=== PATIENT | female | born 1975 | race Caucasian/White ===

== ENCOUNTER 2016-11-09 10:44 | Emergency (ER) | payer OTHER ==
[2016-11-09 11:10] VITALS: BP 146/89; PULSE 70; TEMP 98.6; BMI 26.6
--- NOTE | 2016-11-09 11:53 | PDOC ---
History of Present Illness - General Chief Complaint: Back Pain Stated Complaint: BACK PAIN Time Seen by Provider: 11/09/16 11:49 History Source: Patient Exam Limitations: No Limitations - History of Present Illness Initial Comments: 11/09/16 11:50 41 yr female with history of "pinched nerve to neck" states she was blowdrying and curling her hair this AM at 7 when she felt a pulling to her left scapular area, with burning sensation. Pt has had this before. Pt takes no medicines daily no allergies. LMP 10/04/16. Past History - Past Medical History Allergies/Adverse Reactions: Allergies Allergy/AdvReac Type Severity Reaction Status Date / Time No Known Allergies Allergy Verified 11/09/16 11:07 Home Medications: Ambulatory Orders Diazepam [Valium] 5 mg PO Q8H PRN #12 tablet MDD 3 tabs 11/09/16 Ketorolac Tromethamine [Toradol] 10 mg PO Q6H PRN #20 tablet 11/09/16 Cardiac Disorders: Yes (heart murmur) - Immunization History Immunization Up to Date: Yes - Suicide/Smoking/Psychosocial Hx Smoking History: Never smoked Have you smoked in the past 12 months: No Hx Alcohol Use: No Drug/Substance Use Hx: No Trauma Specific PMHX - Complaint Specific PMHX Arthritis: No Back Injury: No Neck Injury: Yes Hx Sacro Iliac Joint Dysfunction: No Review of Systems - Review of Systems Able to Perform ROS?: Yes Is the patient limited Cypriot proficient: No Constitutional: No: Symptoms Reported HEENTM: No: Symptoms Reported Respiratory: No: Symptoms reported Cardiac (ROS): No: Symptoms Reported ABD/GI: No: Symptoms Reported : No: Symptoms Reported Musculoskeletal: Yes: See HPI *Physical Exam - Vital Signs Last Vital Signs Temp Pulse Resp BP Pulse Ox 98.6 F 70 20 146/89 100 11/09/16 11:08 11/09/16 11:08 11/09/16 11:08 11/09/16 11:08 11/09/16 11:08 - Physical Exam General Appearance: Yes: Nourished, Appropriately Dressed HEENT: positive: EOMI, BENJAMIN, Normal ENT Inspection, TMs Normal, Pharynx Normal Neck: positive: Supple. negative: Tender lateral, Tender midline Respiratory/Chest: positive: Lungs Clear, Normal Breath Sounds. negative: Chest Tender Cardiovascular: positive: Regular Rhythm, Regular Rate Gastrointestinal/Abdominal: positive: Normal Bowel Sounds, Soft. negative: Tender Rectal Exam: positive: deferred Musculoskeletal: positive: Normal Inspection, Decreased Range of Motion, Muscle Spasm (left trapezius muscle with spasm, no vetebral tenderness ). negative: CVA Tenderness (L) Extremity: positive: Normal Capillary Refill, Normal Inspection, Normal Range of Motion. negative: Tender Integumentary: positive: Normal Color, Dry, Warm Neurologic: positive: Fully Oriented, Alert, Normal Mood/Affect, Normal Response , Motor Strength 5/5 Medical Decision Making - Medical Decision Making 11/09/16 11:52 cc: muscle spasm left side trapezius ttp no vetebral tenderness pt unsure of will check if negative valium and toradol *DC/Admit/Observation/Transfer Diagnosis at time of Disposition: Muscle spasm, Cervical nerve root impingement - Discharge Dispostion Disposition: HOME Condition at time of disposition: Good - Prescriptions Prescriptions: Ketorolac Tromethamine [Toradol] 10 mg PO Q6H PRN #20 tablet PRN Reason: Pain Diazepam [Valium] 5 mg PO Q8H PRN #12 tablet MDD 3 tabs PRN Reason: Muscle Spasms - Referrals Referrals: Jacobo Stone MD [Staff Physician] - - Patient Instructions Additional Instructions: apply warm compresses to the area of pain every 3hrs for 20 minutes take the medications as directed for pain and muscle spam the medication should be taken for 3-4 days to provide optimum relief of pain , it will not go away right away Please follow with the orthopedist Dr. Valencia or for follow up call today to make appointment for this week or see your primary care doctor
[2016-11-09] MEDS ORDERED: diazePAM 5 MG TABLET PO ONE (12:14)
[2016-11-09] MEDS ORDERED: KETOROLAC TROMETHAMINE 60 MG/2 ML VIAL IM ONE (12:14)
== END 2016-11-09 12:48 | disposition home or self-care (01) ==
LOC: JERFT 10:44
PROC: 3E0233Z Introduction of Anti-inflammatory into Muscle, Percutaneous Approach (ICD-10-PCS; principal; 2016-11-09)
DX: M62.838 Other muscle spasm (principal); G58.8 Other specified mononeuropathies; X50.1XXA Overexertion from prolonged static or awkward postures, initial encounter; Y93.E8 Activity, other personal hygiene; Y92.098 Other place in other non-institutional residence as the place of occurrence of the external cause
CPT/HCPCS: 84703; 99281-25